=== PATIENT | male | born 1975 | race Caucasian/White ===

== ENCOUNTER 2019-11-18 21:41 | Emergency (ER) | payer BC ==
[2019-11-18 21:52] VITALS: BP 164/116; PULSE 98
[2019-11-18] MEDS ORDERED: Ketorolac 60 MG/2 ML SDV IM ONE (22:10)
[2019-11-18] MEDS ORDERED: Orphenadrine 100 MG Tab.ER PO ONE ×2 (22:10→22:11)
[2019-11-18] MEDS ORDERED: Ondansetron 4 MG Tab.DIS PO ONE (22:10)
--- NOTE | 2019-11-18 22:17 | EDM.PDOC ---
ED HPI GENERAL MEDICAL PROBLEM - General Chief Complaint: Back Pain or Injury Stated Complaint: RIGHT SIDE BACK PAIN Time Seen by Provider: 11/18/19 21:53 Source of Information: Reports: Patient, RN Notes Reviewed History Limitations: Reports: No Limitations - History of Present Illness INITIAL COMMENTS - FREE TEXT/NARRATIVE: Patient is a 44-year-old male who presents to the ED for the evaluation of his back pain. Patient notes that he has chronic back issues, and he has a "blown S1 and L5. Patient notes that around 7 PM tonight he was lying in bed, when he noticed his lower back started to ache. The patient does complain of this pain being achy/annoying in nature. Patient states that he did take some Advil when the pain started getting bad, but the pain is now so severe he is feeling quite nauseated. Patient states that his back pain normally flares up when he overdoes it, and he states that he was loading semi-straps a few days ago and thinks this could have caused the back pain to flare up. He denies any other further trauma to the back or area of concern. Patient denies any urinary issues, the pain does not radiate anywhere, and he has not found any things that make it better necessarily or anything that make it worse. He has prior blood pressure issues that he takes losartan for, and his primary care provider is Dr. Post. Treatments HUMAN RESOURCES HR REPRESENTATIVE: Reports: Other (see below) Other Treatments HUMAN RESOURCES HR REPRESENTATIVE: Advil - Related Data Allergies Allergy/AdvReac Type Severity Reaction Status Date / Time No Known Allergies Allergy Verified 10/21/15 07:20 Home Meds: Home Meds Losartan [Cozaar] 100 mg PO DAILY 11/18/19 [History] Ondansetron [Zofran ODT] 4 mg PO Q8H PRN #12 tab.dis 11/18/19 [Rx] Orphenadrine [Norflex] 100 mg PO BID PRN #20 tab 11/18/19 [Rx] Past Medical History HEENT History: Reports: Allergic Rhinitis, Impaired Vision Cardiovascular History: Reports: Hypertension Musculoskeletal History: Reports: Back Pain, Chronic (L5 and S1 issues) - Past Surgical History GI Surgical History: Reports: Appendectomy Male Surgical History: Reports: Vasectomy Social & Family History - Family History Family Medical History: Noncontributory - Tobacco Use Smoking Status *Q: Never Smoker - Caffeine Use Caffeine Use: Reports: None - Living Situation & Occupation Living situation: Reports: Single, Other Occupation: Employed ED ROS GENERAL - Review of Systems Review Of Systems: Comprehensive ROS is negative, except as noted in HPI. ED EXAM,LOWER BACK PAIN/INJURY - Physical Exam Exam: See Below Exam Limited By: No Limitations General Appearance: Alert, WD/WN, No Apparent Distress Respiratory/Chest: No Respiratory Distress, Lungs Clear, Normal Breath Sounds, No Accessory Muscle Use, Chest Non-Tender Cardiovascular: Normal Peripheral Pulses, Regular Rate, Rhythm, No Murmur GI/Abdominal: Normal Bowel Sounds, Soft, Non-Tender, No Distention, No Mass Back Exam: Normal Inspection, Full Range of Motion, Muscle Spasm (on left flank area, seems to be just above the L5 area that he has chronic issues with.). No : CVA Tenderness (L), CVA Tenderness (R) Extremities: Normal Inspection, Normal Range of Motion, Normal Capillary Refill Neurological: Alert, Normal Mood/Affect, Normal Dorsiflexion, Normal Plantar Flexion, Normal Gait, No Motor/Sensory Deficits, Oriented x 3 Psychiatric: Normal Affect, Normal Mood Skin Exam: Warm, Dry, Intact, Normal Color, No Rash Course - Vital Signs Last Recorded V/S: Last Vital Signs Temp 97.1 F 11/18/19 21:49 Pulse 98 11/18/19 21:49 Resp 20 11/18/19 21:49 BP 164/116 H 11/18/19 21:49 Pulse Ox 96 11/18/19 21:49 - Orders/Labs/Meds Orders: Active Orders 24 hr Category Date Time Status Orphenadrine [Norflex] Med 11/18/19 22:11 Once 100 mg PO ONETIME ONE Meds: Medications Discontinued Medications Generic Name Dose Route Start Last Admin Trade Name Freq PRN Reason Stop Dose Admin Ketorolac Tromethamine 60 mg 11/18/19 22:10 Toradol IM 11/18/19 22:11 ONETIME ONE Ondansetron HCl 4 mg 11/18/19 22:10 Zofran Odt PO 11/18/19 22:11 ONETIME ONE Orphenadrine Citrate 100 mg 11/18/19 22:10 Norflex PO 11/18/19 22:11 ONETIME ONE Orphenadrine Citrate 100 mg 11/18/19 22:11 Norflex PO 11/18/19 22:12 ONETIME ONE - Re-Assessments/Exams Free Text/Narrative Re-Assessment/Exam: 11/18/19 22:17 Patient presents to the ED for his back pain. Have ordered 4 mg ODT Zofran for his nausea, Norflex and a injection of Toradol for pain management. I do believe the pain is musculoskeletal in nature and he is suffering from a muscle spasm. We will provide the patient with a prescription for Norflex he will have to [facility] pick[facility] at [facility] near [facility] tomorrow between 12-4PM. Patient is aware of this and will do so. Departure - Departure Time of Disposition: 22:18 Disposition: Home, Self-Care 01 Condition: Good Clinical Impression: Lumbar back pain, Muscle spasm of back - Discharge Information *PRESCRIPTION DRUG MONITORING PROGRAM REVIEWED*: No *COPY OF PRESCRIPTION DRUG MONITORING REPORT IN PATIENT FARTUN: No Prescriptions: Ondansetron [Zofran ODT] 4 mg PO Q8H PRN #12 tab.dis PRN Reason: Nausea Orphenadrine [Norflex] 100 mg PO BID PRN #20 tab PRN Reason: Spasms Instructions: Muscle Cramps and Spasms, [id number], Back Exercises, Easy-to- Read, Chronic Back Pain, [id number] Referrals: Messi Castro MD [Primary Care Provider] - Additional Instructions: You have been evaluated in the ED for your lower back pain. Please use ice/heat as tolerated to the affected area. You may take Tylenol 500 mg or ibuprofen 600mg q6 hrs for pain relief. Please do so until you have a tolerable level of pain with activity. Do not exceed 4000mg Tylenol or 3200mg ibuprofen in a 24 hour time period. You were given a prescription for Norflex, a muscle relaxer. Please take 1 tab every 12 hours as needed for further muscle spasms. This medication was electronically sent to the [facility] pharmacy located near [facility], due to tomorrow being Wednesday, they are only open from 12 to 4 PM you will need to go there in this timeframe to retrieve the medication and start taking as prescribed. You were provided with 1 tablet to take in the morning from this ER department as she will likely need 1 in the morning before the pharmacy opens. Recommend you follow-up with your regular care provider for re-evaluation and refill of medications if needed. Please return to ED if your symptoms should change or worsen. Sepsis Event Note - Evaluation Sepsis Screening Result: No Definite Risk - Focused Exam Vital Signs: Vital Signs Temp Pulse Resp BP Pulse Ox 11/18/19 21:49 97.1 F 98 20 164/116 H 96 Date Exam was Performed: 11/18/19 Time Exam was Performed: 22:12 - My Orders Last 24 Hours: My Active Orders 11/18/19 22:11 Orphenadrine [Norflex] 100 mg PO ONETIME ONE - Assessment/Plan Last 24 Hours: My Active Orders 11/18/19 22:11 Orphenadrine [Norflex] 100 mg PO ONETIME ONE
== END 2019-11-18 22:36 | disposition home or self-care (01) ==
LOC: JD.ED 21:41
DX: M62.830 Muscle spasm of back (principal); I10 Essential (primary) hypertension; Z79.899 Other long term (current) drug therapy
CPT/HCPCS: 96372; 99283; A9270; J1885

== ENCOUNTER 2022-05-16 18:57 | Emergency (ER) | payer BC ==
[2022-05-16] MEDS ORDERED: Metoclopramide 10 MG/2 ML SDV IM ONE (20:04)
[2022-05-16] MEDS ORDERED: Ketorolac 30 MG/ML SDV IM ONE (20:04)
[2022-05-16] MEDS ORDERED: diphenhydrAMINE 50 MG/ML SDV IM ONE (20:04)
[2022-05-16 21:29] VITALS: BP 129/91; PULSE 85
== END 2022-05-16 21:29 | disposition home or self-care (01) ==
LOC: JD.ED 18:57
DX: G44.209 Tension-type headache, unspecified, not intractable (principal); I10 Essential (primary) hypertension; Z79.899 Other long term (current) drug therapy; Z90.49 Acquired absence of other specified parts of digestive tract
CPT/HCPCS: 82947; 96372; 99284; J1200; J1885; J2765

== ENCOUNTER 2022-10-27 15:49 | Emergency (ER) | payer BC ==
[2022-10-27] MEDS ORDERED: Sodium Chloride 0.9% 10 ML Syringe FLUSH PRN (16:09)
[2022-10-27] MEDS ORDERED: Aspirin 81 MG Tab.Chew PO ONE (16:09)
[2022-10-27 19:11] VITALS: BP 135/98; PULSE 96
== END 2022-10-27 19:11 | disposition home or self-care (01) ==
LOC: JD.ED 15:49
DX: R07.89 Other chest pain (principal); I10 Essential (primary) hypertension; E11.9 Type 2 diabetes mellitus without complications; Z86.16 Personal history of COVID-19; Z79.899 Other long term (current) drug therapy
CPT/HCPCS: 36415; 71046; 80053; 84484; 85025; 85379; 93005; 99285; A9270; J3490; 93010; 99283